=== PATIENT | male | born 1960 | race Caucasian/White ===

== ENCOUNTER 2020-04-14 08:53 | Emergency (ER) | payer BC ==
[~2020-04-14] VITALS: Ht 177.8 cm; Wt 88.0 kg
[2020-04-14 09:57] LABS: BASOPHILS # (AUTO) 0.1 X10'3 (0-0.2); EOSINOPHILS # (AUTO) 0.1 X10'3 (0-0.9); EOSINOPHILS % (AUTO) 2.6 % (0-6); HEMATOCRIT 43.4 % (42.0-52.0); HEMOGLOBIN 14.2 g/dl (14.0-17.9); LYMPHOCYTES # (AUTO) 1.3 X10'3 (1.1-4.8); LYMPHOCYTES % (AUTO) 26.1 % (21-51); MEAN CORPUSCULAR HEMOGLOBIN 29.4 PG (27.0-31.0); MEAN CORPUSCULAR HGB CONC 32.8 g/dL (33.0-36.5); MEAN CORPUSCULAR VOLUME 89.7 FL (78-98); MEAN PLATELET VOLUME 8.5 FL (7.4-10.4); MONOCYTES # (AUTO) 0.6 X10'3 (0-0.9); MONOCYTES % (AUTO) 12.1 % (2-12); NEUTROPHILS % (AUTO) 58.2 % (42-75); PLATELET COUNT 244 X10'3 (140-440); RED BLOOD COUNT 4.84 X10'6 (4.70-6.10); RED CELL DISTRIBUTION WIDTH 12.9 % (11.5-14.5); WHITE BLOOD COUNT 5.2 X10'3 (4.5-11.0)
[2020-04-14 10:03] LABS: CLARITY,URINE SLIGHTLY CLOUDY (Clear); COLOR,URINE YELLOW (Yellow); GLUCOSE, URINE NEGATIVE (Neg); KETONES,URINE >=80 mg/dl (Neg); LEUKOCYTE ESTERASE ,URINE NEGATIVE (Neg); NITRITES, URINE NEGATIVE (Neg); OCCULT BLOOD,URINE TRACE-INTACT (Neg); PH,URINE 5.5 (4.8-8.0); PROTEIN,URINE 30 mg/dl (Neg)
[2020-04-14] MEDS ORDERED: iohexol 300mg/ml 100ml inj. ONE (10:06)
[2020-04-14 10:12] LABS: UA COLLECTION TYPE URINAL
[2020-04-14 10:14] LABS: BACTERIA,URINE NONE SEEN /HPF (Neg); MUCUS STRANDS FEW /LPF (Neg); RBC,URINE NONE SEEN /HPF (0-2); SQUAMOUS EPITHELIAL CELL,UR FEW /LPF (FEW); WBC,URINE 0-4 /HPF (0-4)
[2020-04-14 10:15] LABS: CELLULAR CAST 0-4 /LPF (NEGATIVE)
[2020-04-14 10:21] LABS: ALANINE AMINOTRANSFERASE 47 U/L (12-78); ALBUMIN 4.3 G/DL (3.4-5.0); ALBUMIN/GLOBULIN RATIO 1.1 (1.1-1.5); ALKALINE PHOSPHATASE 50 IU/L (46-116); ANION GAP 16 (8-16); ASPARTATE AMINO TRANSFERASE 30 U/L (10-37); BILIRUBIN,TOTAL 1.6 MG/DL (0.1-1.0); BLOOD UREA NITROGEN 26 MG/DL (7-18); CALCIUM 9.2 MG/DL (8.5-10.1); CHLORIDE 105 MMOL/L (99-107); CREATININE 1.86 MG/DL (0.60-1.10); GLUCOSE 110 MG/DL (70-104); LIPASE 205 U/L (73-393); POTASSIUM 4.1 MMOL/L (3.5-5.1); SODIUM 141 MMOL/L (135-145); TOTAL CARBON DIOXIDE 20.5 MMOL/L (24-32); TOTAL PROTEIN 8.1 G/DL (6.4-8.2); eGFR 37 ML/MIN
[2020-04-14 10:39] LABS: OCCULT BLOOD STOOL NEGATIVE (Neg)
[2020-04-14] MEDS ORDERED: normal saline 1000ML IV soln IVB ONE (11:15)
[2020-04-14] MEDS ORDERED: FAMO40TA58 PO (11:36)
[2020-04-14] MEDS ORDERED: DICY10CA88 PO (11:36)
[2020-04-14 11:56] VITALS: BP 179/96
== END 2020-04-14 12:00 | disposition home or self-care (01) ==
LOC: ER 08:53
DX: R10.11 Right upper quadrant pain (principal); R79.89 Other specified abnormal findings of blood chemistry; E78.00 Pure hypercholesterolemia, unspecified; I10 Essential (primary) hypertension; Z72.89 Other problems related to lifestyle; Z79.899 Other long term (current) drug therapy
CPT/HCPCS: 36415; 74177; 80053; 81001; 82272; 83690; 85025; 99285; J7030; Q9967